=== PATIENT | female | born 1980 | race Hispanic/Latino ===

== ENCOUNTER 2018-12-20 09:05 | Day surgery (SDC) | payer BC ==
[2018-12-19 10:35] VITALS: BP 122/59
[2018-12-19 10:51] LABS: BASOPHILS % (AUTO) 0.6 % (0.0-5.0); EOSINOPHILS % (AUTO) 0.8 % (0.0-8.0); HEMATOCRIT 38.9 % (36-48); MEAN CORPUSCULAR HEMOGLOBIN 27.6 pg (27.0-33.0); MEAN CORPUSCULAR HGB CONC 32.8 g/dL (32.0-36.0); MEAN CORPUSCULAR VOLUME 84.2 fL (79-99); MONOCYTES % (AUTO) 3.2 % (3.0-13.0); NEUTROPHILS % (AUTO) 82.4 % (40.0-77.0); PLATELET COUNT (AUTO) 580 K/uL (130-400); RED BLOOD CELL COUNT(AUTO) 4.62 MIL/uL (4.00-5.50); WHITE BLOOD COUNT (AUTO) 18.7 K/uL (4.8-10.8)
[2018-12-19 11:01] LABS: INR 0.95 (0.85-1.15); PARTIAL THROMBOPLASTIN TIME 31.7 SEC (26.3-35.5)
[2018-12-19 11:02] LABS: CREATININE 0.7 mg/dL (0.5-1.5); POTASSIUM 4.4 mmol/L (3.5-5.1)
[~2018-12-20] VITALS: Ht 165.1 cm; Wt 92.9 kg
[~2018-12-20 09:05] MED LIST: CEPH500B PO
[2018-12-20] MEDS ORDERED: SODIUM CHLORIDE 0.9% 1000ML 1,000 ML IV ONE (09:19)
[2018-12-20 09:20] VITALS: BP 119/61
--- NOTE | 2018-12-20 09:25 | NUR ---
PATIENT ARRIVED PATIENT ARRIVED TO DAY PATIENT ACCOMPANIED BY MOTHER. PATIENT AAOX3, RESPIRATIONS UNLABORED, VITAL SIGNS STABLE. DENIES ANY PAIN. CHOLECYSTOSTOMY DRAIN TO RIGHT LOWER ABDOMEN DRAINING DARK ORANGE FLUID. PROCEDURE VERIFIED WITH PATIENT AND CONFIRMED. ALL QUESTIONS/CONCERNS ADDRESSED.
[2018-12-20] MEDS ORDERED: IODIXANOL 320 MG/ML 100 ML VIAL ONE (10:30)
[2018-12-20] MEDS ORDERED: LIDOCAINE HCL 1% MDV 50ML VIAL ONE (10:31)
--- NOTE | 2018-12-20 10:35 | NUR ---
PATIENT TRANSFERRED PATIENT TAKEN TO SCREW MACHINE SET UP OPERATOR TOOL BY ABHIJIT AVALOS AND NIVIA PÉREZ RN VIA BED. FAMILY WAITING IN ROOM.
[2018-12-20 11:20] VITALS: BP 128/72
--- NOTE | 2018-12-20 11:20 | NUR ---
PATIENT BACK PATIENT BROUGHT BACK FROM COLLECTOR OF PORT BY ABHIJIT AVALOS. PATIENT AAOX3, RESPIRATION UNLABORED, VITAL SIGNS STABLE, DENIES ANY PAIN. DRAIN TO RIGHT LOWER ABDOMEN WITH CLAMP. DRESSING DRY AND INTACT. SIDE RAILS UPX2, BED IN LOWEST POSITION. FAMILY AT BEDSIDE.
[2018-12-20 11:35] VITALS: BP 124/80
[2018-12-20 11:50] VITALS: BP 123/74
[2018-12-20 12:05] VITALS: BP 118/64
[2018-12-20 12:20] VITALS: BP 124/78
--- NOTE | 2018-12-20 12:25 | NUR ---
PATIENT DISCHARGED DISCHARGE INSTRUCTIONS PROVIDED TO PATIENT'S SPOUSE. PROVIDED FOLLOW UP APPOINTMENT AND TUBE/DRAIN CARE. ALL QUESTIONS/CONCERNS ADDRESSED. PATIENT'S SPOUSE VERBALIZED UNDERSTANDING OF INSTRUCTIONS. PATIENT TAKEN TO PRIVATE VEHICLE VIA WHEELCHAIR. DRAIN TO RIGHT LOWER ABDOMEN CLAMPED AND DRESSING DRY AND INTACT.
== END 2018-12-20 12:25 ==
LOC: DAH 09:05
PROVIDERS: ATTEND Surgery
DX: K81.0 Acute cholecystitis (principal); Z98.890 Other specified postprocedural states; Z79.899 Other long term (current) drug therapy; Z79.01 Long term (current) use of anticoagulants
CPT/HCPCS: 36415; 47531; 80048; 84703; 85025; 85610; 85730; J1644; J3490; J7030; Q9967

== ENCOUNTER → 2023-01-01 | Outpatient (CLI) | payer BC | END | disposition home or self-care (01) | LOC: RAH 15:51 | PROVIDERS: ATTEND Obstetrics & Gynecology | DX: Z12.31 Encounter for screening mammogram for malignant neoplasm of breast (principal) | CPT/HCPCS: 77067 ==